=== PATIENT | female | born 1990 | race Caucasian/White ===

== ENCOUNTER 2016-07-04 17:49 | Emergency (ER) | payer MEDICAID, OTHER ==
[2016-07-04 18:37] LABS: SPECIFIC GRAVITY 1.025 (1.001-1.030); URINE BILIRUBIN NEGATIVE (NEGATIVE); URINE BLOOD NEGATIVE (NEGATIVE); URINE GLUCOSE (UA) NEGATIVE (NEGATIVE); URINE LEUKOCYTE ESTERASE TRACE (NEGATIVE); URINE NITRITE NEGATIVE (NEGATIVE); URINE PROTEIN TRACE (NEGATIVE); URINE UROBILINOGEN NORMAL (0-1 mg/dl)
[2016-07-04 18:40] LABS: HCG,QUALITATIVE URINE NEGATIVE; URINE APPEARANCE SL CLOUDY; URINE COLOR YELLOW
[2016-07-04 19:07] LABS: URINE AMORPHOUS SEDIMENT MODERATE; URINE BACTERIA 2+; URINE MUCUS 2+; URINE RBC 0 /hpf
[2016-07-04] MEDS ORDERED: LACTATED RINGERS 1,000 ML ONE (19:51)
[2016-07-04] MEDS ORDERED: MORPHINE SULFATE 4 MG/ML SYRINGE ONE (19:51)
[2016-07-04 19:59] LABS: BASO % 0.4 % (0.2-1.0); EOS # 0.1 (0.0-0.5); EOS % 1.3 % (0.9-2.9); HEMATOCRIT 41.2 % (37.0-47.0); HEMOGLOBIN 13.5 gm/l (12.0-16.0); IMM NEUT% 0.3 % (0-1); LYMPH # 2.3 (1.0-4.8); LYMPH % 25.5 % (15-45); MEAN CELL VOLUME 86.9 fl (81.0-99.0); MEAN CORPUSCULAR HEMOGLOBIN 28.5 pg (27.0-31.0); MEAN CORPUSCULAR HGB CONC 32.8 g/dl (33.0-37.0); MEAN PLATELET VOLUME 10.4 fl (7.4-10.4); MONO # 0.5 (0.0-0.8); MONO % 5.2 % (4-12); NEUT % 67.3 % (43-75); PLATELET COUNT 246 K/mm3 (130-400)
[2016-07-04 20:10] LABS: ALB/GLOB RATIO 1.7 (>1.0); ALBUMIN 4.2 gm/dL (3.5-5.7); CALCIUM 9.2 mg/dL (8.6-10.3)
--- NOTE | 2016-07-04 20:49 | US ---
ABDOMINAL-LIMITED: 07/04/2016 7:38 PM CLINICAL HISTORY: Right upper quadrant and epigastric pain. STUDY: Limited right upper quadrant ultrasound COMPARISON: none FINDINGS: Gallbladder: Wall thickness: Normal Cholelithiasis: none Pericholecystic Fluid: none Sonographic Bell's Sign: negative Bile ducts: Common bile duct measures 3 mm. Limited visualized Liver and RUQ structures: normal IMPRESSION: No sonographic findings of acute cholecystitis or cholelithiasis. Nuclear medicine scintigraphy could be helpful in further assessment as clinically warranted. Report was uploaded to the electronic medical record at approximately 2046 hours on 07/04/2016.
[2016-07-04] MEDS ORDERED: SUCRALFATE 1 G/10 ML DOSE ONE (21:13)
[2016-07-04] MEDS ORDERED: FAMOTIDINE 20 MG TABLET ONE (21:13)
[2016-07-04] MEDS ORDERED: MAALOX/LIDO2%VISC/SIMETHICONE 40 ML BOT ONE (21:18)
== END 2016-07-04 21:30 | disposition home or self-care (01) ==
LOC: ED 17:49
DX: R10.13 Epigastric pain (principal); F17.210 Nicotine dependence, cigarettes, uncomplicated
CPT/HCPCS: 83690; 81025; 85025; 80053; 81001; 76705; 99284 ×2; 96374; 96361 ×2; A9270 ×3; J2270; J7120